=== PATIENT | female | born 1935 | race Caucasian/White ===

== ENCOUNTER 2018-01-08 08:23 | Day surgery (SDC) | payer MEDICARE ==
[~2018-01-08] VITALS: Ht 167.6 cm; Wt 76.2 kg
[~2018-01-08 08:23] MED LIST: ALPR.25; CALCIT950; CHOL10002; COLE625 PO; CYAN500; DIPATR PO; DOXE75C; EXTRA STRENGTH500 MG; LANS30EC PO; LEVSOD25; LOPE2C PO; MULVITA; NIFE30ER; OMEP20ER; PANT40 PO; PROM25 PO; RANI150; Zofran Odt8 MG SL; [UNRECOGNIZED DRUG - CODE]
== END 2018-01-08 10:18 | disposition home or self-care (01) ==
LOC: ORSCSDS 08:23
PROVIDERS: Internal Medicine Gastroenterology
PROC: 0DJD8ZZ Inspection of Lower Intestinal Tract, Via Natural or Artificial Opening Endoscopic (ICD-10-PCS; principal; 2018-01-08 09:45)
DX: Z12.11 Encounter for screening for malignant neoplasm of colon (principal); K57.30 Diverticulosis of large intestine without perforation or abscess without bleeding; E73.9 Lactose intolerance, unspecified; Z87.891 Personal history of nicotine dependence; Z79.899 Other long term (current) drug therapy
CPT/HCPCS: J7120

== ENCOUNTER → 2018-07-24 | Outpatient (CLI) | payer MEDICARE ==
[2018-07-24 15:03] LABS: Bilirubin, Urine Neg (Neg); Blood, Urine Neg (Neg); Glucose Qualitative, Urine Neg (Neg); Ketones, Urine Neg (Neg); Leukocyte Esterase, Urine Neg (Neg); Nitrite, Urine Neg (Neg); Protein, Urine Neg (Neg); Urobilinogen, Urine NORM (Normal)
[2018-07-24 15:38] LABS: Appearance, Urine Clear (Clear); Color, Urine Yellow (P-Yellow)
== END | disposition home or self-care (01) ==
LOC: LAB SHORT 09:20 → LAB 09:20 → EDSTATUS 07-17 15:40 → LAB FUT 07-17 15:40
PROVIDERS: Internal Medicine
DX: N39.0 Urinary tract infection, site not specified (principal)
CPT/HCPCS: 81003

== ENCOUNTER → 2019-09-24 | Outpatient (CLI) | payer MEDICARE ==
[2019-09-24 12:32] LABS: Source, Urine Clean Catch
[2019-09-24 14:10] LABS: Bilirubin, Urine Neg (Neg); Blood, Urine 2+ (Neg); Glucose Qualitative, Urine Neg (Neg); Ketones, Urine Neg (Neg); Leukocyte Esterase, Urine 3+ (Neg); Nitrite, Urine Neg (Neg); Protein, Urine Neg (Neg); Urobilinogen, Urine NORM (Normal)
[2019-09-24 14:29] LABS: Appearance, Urine Hazy (Clear); Color, Urine Yellow (P-Yellow)
[2019-09-24 14:30] LABS: Bacteria Few /hpf; Red Blood Cells, Urine 0-2 /hpf (0-2); Squamous Epithelial Cells Few /hpf (Few)
[2019-09-24 14:31] LABS: Transitional Epithelial Cells Few /hpf (0-Rare)
== END | disposition home or self-care (01) ==
LOC: LAB SHORT 12:27 → OLS 12:27 → LAB FUT 09-23 12:15
PROVIDERS: Internal Medicine
DX: N39.0 Urinary tract infection, site not specified (principal)
CPT/HCPCS: 81001

== ENCOUNTER 2019-10-09 00:05 | Day surgery (SDC) | payer MEDICARE | END 2019-10-09 10:11 | disposition home or self-care (01) | LOC: ATC 00:05 | DX: R32 Unspecified urinary incontinence (principal); Z87.448 Personal history of other diseases of urinary system; Z88.6 Allergy status to analgesic agent; Z88.5 Allergy status to narcotic agent; Z88.8 Allergy status to other drugs, medicaments and biological substances; Z79.899 Other long term (current) drug therapy; E78.5 Hyperlipidemia, unspecified; I10 Essential (primary) hypertension; E03.9 Hypothyroidism, unspecified; K58.0 Irritable bowel syndrome with diarrhea; K21.9 Gastro-esophageal reflux disease without esophagitis | CPT/HCPCS: 51798 ==

== ENCOUNTER → 2019-10-10 | Outpatient (CLI) | payer MEDICARE ==
[2019-10-10 09:51] LABS: Source, Urine Clean Catch
[2019-10-10 10:51] LABS: Appearance, Urine Clear (Clear); Bilirubin, Urine Neg (Neg); Blood, Urine Neg (Neg); Color, Urine Yellow (P-Yellow); Glucose Qualitative, Urine Neg (Neg); Ketones, Urine Neg (Neg); Leukocyte Esterase, Urine Neg (Neg); Nitrite, Urine Neg (Neg); Protein, Urine Neg (Neg); Urobilinogen, Urine NORM (Normal)
== END | disposition home or self-care (01) ==
LOC: OLS 09:40 → LAB SHORT 09:40
PROVIDERS: Internal Medicine
DX: R32 Unspecified urinary incontinence (principal); Z87.448 Personal history of other diseases of urinary system
CPT/HCPCS: 81003

== ENCOUNTER → 2021-03-16 | Outpatient (CLI) | payer MEDICARE ==
[2021-03-16 09:59] LABS: Source, Urine Clean Catch
[2021-03-16 11:28] LABS: Appearance, Urine Clear (Clear); Bilirubin, Urine Neg (Neg); Blood, Urine Neg (Neg); Color, Urine Yellow (P-Yellow); Glucose Qualitative, Urine Neg (Neg); Ketones, Urine Neg (Neg); Leukocyte Esterase, Urine 1+ (Neg); Nitrite, Urine Neg (Neg); Protein, Urine 1+ (Neg); Specific Gravity, Urine 1.005 (1.003-1.022); Urobilinogen, Urine NORM (Normal)
[2021-03-16 12:03] LABS: Bacteria Rare /hpf; Red Blood Cells, Urine 0-2 /hpf (0-2); Squamous Epithelial Cells Rare /hpf (Few); Transitional Epithelial Cells Rare /hpf (0-Rare); White Blood Cells, Urine 0-2 /hpf (0-5)
== END | disposition home or self-care (01) ==
LOC: LAB 09:58 → LAB SHORT 09:58 → LAB FUT 03-15 10:35
PROVIDERS: Internal Medicine
DX: R82.90 Unspecified abnormal findings in urine (principal)
CPT/HCPCS: 81001; 87086

== ENCOUNTER → 2021-08-04 | Outpatient (CLI) | payer MEDICARE ==
[2021-08-05 10:53] LABS: Candida species (DNA Probe) Negative (NEGATIVE); G. vaginalis (DNA Probe) Negative (NEGATIVE); T. vaginalis (DNA Probe) Negative (NEGATIVE)
== END | disposition home or self-care (01) ==
LOC: LAB SHORT 16:49 → LAB 16:49
PROVIDERS: Obstetrics & Gynecology
DX: N89.8 Other specified noninflammatory disorders of vagina (principal)
CPT/HCPCS: 87480; 87510; 87660

== ENCOUNTER → 2021-09-30 | Outpatient (CLI) | payer MEDICARE ==
[2021-09-30 12:52] LABS: Campylobacter Sp Not Detected (NOT DETECT); Enteroaggregative E. coli-EAEC Not Detected (NOT DETECT); Plesiomonas Shigelloides Not Detected (NOT DETECT); Salmonella Sp Not Detected (NOT DETECT); Vibrio Cholerae Not Detected (NOT DETECT); Vibrio Sp Not Detected (NOT DETECT); Yersinia Enterocolitica Not Detected (NOT DETECT)
[2021-09-30 12:53] LABS: Adenovirus F 40/41 Not Detected (NOT DETECT); Astrovirus Not Detected (NOT DETECT); Cryptosporidium Not Detected (NOT DETECT); Cyclospora Cayetanensis Not Detected (NOT DETECT); E. Coli O157 Not Detected (NOT DETECT); Entamoeba Histolytica Not Detected (NOT DETECT); Enteropathogenic E. coli-EPEC Not Detected (NOT DETECT); Enterotoxigenic E. coli-ETEC Not Detected (NOT DETECT); Giardia Lamblia Not Detected (NOT DETECT); Norovirus GI/GII Not Detected (NOT DETECT); Rotavirus A Not Detected (NOT DETECT); Sapovirus Not Detected (NOT DETECT); Shiga Toxin-prod E. coli-STEC Not Detected (NOT DETECT); Shigella/Enteroin E. coli-EIEC Not Detected (NOT DETECT)
== END | disposition home or self-care (01) ==
LOC: LAB 10:22 → LAB SHORT 10:22 → LAB FUT 09-29 13:35
PROVIDERS: Internal Medicine
DX: R10.9 Unspecified abdominal pain (principal); R19.7 Diarrhea, unspecified
CPT/HCPCS: 87507

== ENCOUNTER 2023-01-25 10:10 | Day surgery (SDC) | payer MEDICARE ==
[~2023-01-25] VITALS: Ht 165.1 cm; Wt 68.4 kg
[2023-01-25] MEDS ORDERED: GLUCHON (11:38)
[2023-01-25] MEDS ORDERED: FAMO20 (11:38)
--- NOTE | 2023-01-25 12:07 | NUR ---
01/25/23 1207 JAIRO ALVAREZ VERSE 1MG GIVEN IV PER ORDERS PRE NERVE BLOCK
[2023-01-25 12:51] VITALS: BP 137/54
--- NOTE | 2023-01-25 13:09 | NUR ---
01/25/23 1309 Luci Rowe IV REMOVED- WNL. CANNULA INTACT. TOLERATED WELL.
== END 2023-01-25 13:25 | disposition home or self-care (01) ==
LOC: ORSCSDS 10:10
PROVIDERS: Orthopaedic Surgery
PROC: 01N54ZZ Release Median Nerve, Percutaneous Endoscopic Approach (ICD-10-PCS; principal; 2023-01-25 12:00)
DX: G56.03 Carpal tunnel syndrome, bilateral upper limbs (principal); Z87.891 Personal history of nicotine dependence; I10 Essential (primary) hypertension; E03.9 Hypothyroidism, unspecified; Z85.820 Personal history of malignant melanoma of skin; Z79.899 Other long term (current) drug therapy
CPT/HCPCS: J2250; J7120